=== PATIENT | male | born 1975 | race Caucasian/White ===

== ENCOUNTER 2016-08-14 13:55 | Emergency (ER) | payer MEDICAID ==
[~2016-08-14] VITALS: Ht 180.3 cm; Wt 81.6 kg
[~2016-08-14 13:55] MED LIST: ADDERAL20 MG ORAL; ADDERALL 20 MG20 MG ORAL; ADDERALL 30 MG30 MG ORAL; ADDERALL XR 2020 MG ORAL; KENALOG 0.1% CR15 GM APPLIC; KENALOG 0.1% CR15 GM TOPIC; PEPCID20 MG PO; VYVANSE30 MG PO; VYVANSE70 MG ORAL; VYVANSE70 MG PO
[2016-08-14 14:09] VITALS: BP 128/88
[2016-08-14] MEDS ORDERED: ADDERALL XR 2525 MG ORAL (14:18)
[2016-08-14 14:20] VITALS: BP 128/88
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
== END 2016-08-14 14:20 | disposition home or self-care (01) ==
LOC: EMR 14:16
DX: Z76.0 Encounter for issue of repeat prescription (principal); F90.9 Attention-deficit hyperactivity disorder, unspecified type; K21.9 Gastro-esophageal reflux disease without esophagitis; Z88.6 Allergy status to analgesic agent
CPT/HCPCS: 99283

== ENCOUNTER 2016-08-14 16:06 | Emergency (ER) | payer MEDICAID ==
[~2016-08-14] VITALS: Ht 185.4 cm; Wt 83.9 kg
[~2016-08-14 16:06] MED LIST changes: +ADDERALL XR 2525 MG ORAL
[2016-08-14 16:30] VITALS: BP 129/91
[2016-08-14 16:48] LABS: APPEARANCE,URINE CLEAR; KETONES,URINE NEGATIVE (NEGATIVE); LEUKOCYTE ESTERASE ,URINE NEGATIVE (NEGATIVE); NITRITE,URINE NEGATIVE (NEGATIVE); PH,URINE 6 (4.5-8.0); PROTEIN,URINE NEGATIVE (NEGATIVE); UROBILINOGEN,URINE NORMAL MG/DL (0.0-1.0)
[2016-08-14 17:02] LABS: MEAN CORPUSCULAR HEMOGLOBIN 29.8 PG (27.0-31.0); MEAN CORPUSCULAR HGB CONC 33.2 G/DL (32.0-36.0); MEAN CORPUSCULAR VOLUME 90 FL (80-99); MEAN PLATELET VOLUME 12.2 FL (6.5-10.1); PLATELET COUNT 38 K/UL (150-450); RED BLOOD COUNT 4.26 M/UL (4.70-6.10); RED CELL DISTRIBUTION WIDTH 13.6 % (11.6-14.8); WHITE BLOOD COUNT 5.8 K/UL (4.8-10.8)
[2016-08-14 17:06] LABS: ALANINE AMINOTRANSFERASE 43 U/L (3-41); ALBUMIN/GLOBULIN RATIO 1.8 (1.0-2.7); ALCOHOL < 10 mg/dL; ANION GAP 22 (5-15); ASPARTATE AMINO TRANSFERASE 54 U/L (5-40); CALCIUM 9.2 mg/dL (8.6-10.2); CARBON DIOXIDE 20 mEQ/L (20-30); CHLORIDE 96 mEQ/L (98-107); CREATININE 1.2 mg/dL (0.7-1.2); GLOMERULAR FILTRATION RATE > 60 mL/min (>60); HEMOLYSIS 6; POTASSIUM 4.3 mEQ/L (3.4-4.9); SODIUM 138 mEQ/L (135-145)
--- NOTE | 2016-08-14 17:08 | Emergency Room Report ---
History of Present Illness General Chief Complaint: Seizure Source: Patient Present Illness HPI Patient presents by EMS. He presents for a first-time seizure. Apparently, this patient had been walking for several hours today to different pharmacies to fill a prescription of Adderall. He states that he walked to 7 different pharmacies. He states that he may have been dehydrated. Regardless, he was outside of the pharmacy and was witnessed to have a tonic clonic seizure that lasted about 30 seconds. This was witnessed by bystanders. The patient states he has never had a seizure previously. He states that other than feeling dehydrated he has felt well today. He denies fever or chills. He denies nausea or vomiting. Denies chest pain or shortness of breath. He states that he does have ADHD and uses Adderall. Apparently there is no trauma. The patient wasn't feeling right and laid down and then had a seizure. Patient feels back to baseline now. The patient has no complaints. Allergies: Coded Allergies: CODEINE (Verified Allergy, Unknown, 11/08/12) Patient History Past Medical History: see triage record, GERD, psych hx - ADHD Social History: Denies: alcohol use, drug use, smoking Reviewed Nursing Documentation: PMH: Agreed, PSxH: Agreed Nursing Documentation-PMH Hx Cardiac Problems: No - ECZEMA Hx Hypertension: No Hx Pacemaker: No Hx Asthma: Yes - CHILDHOOD Hx COPD: No Hx Diabetes: No Hx Cancer: No Hx Dialysis: No Hx Neurological Problems: Yes - adhd Hx Cerebrovascular Accident: No Hx Seizures: No Review of Systems All Other Systems: negative except mentioned in HPI Physical Exam Vital Signs Date Time Temp Pulse Resp B/P Pulse Ox O2 Delivery O2 Flow Rate FiO2 08/14/16 16:02 98.2 119 18 145/87 98 Room Air Sp02 EP Interpretation: reviewed, normal General Appearance: no apparent distress, alert, GCS 15, non-toxic Head: normocephalic, atraumatic Eyes: bilateral eye PERRL, bilateral eye normal inspection ENT: hearing grossly normal, normal pharynx, no angioedema, normal voice Neck: full range of motion, supple/symm/no masses Respiratory: chest non-tender, lungs clear, normal breath sounds, speaking full sentences Cardiovascular #1: regular rate, rhythm, no edema Gastrointestinal: normal bowel sounds, non tender, soft, non-distended, no guarding, no rebound Rectal: deferred Musculoskeletal: back normal, gait/station normal, normal range of motion, non- tender Neurologic: alert, oriented x3, responsive, motor strength/tone normal, sensory intact, speech normal Psychiatric: judgement/insight normal, memory normal, mood/affect normal, no suicidal/homicidal ideation Skin: normal color, no rash, warm/dry, well hydrated Medical Decision Making Diagnostic Impression: Primary Impression: Epileptic seizure, generalized ER Course I suspect the seizures that the patient is presenting with is non-emergent in etiology. The patient is not immunocompromised with no history of known structural brain disease. The patient does not have persistent altered mental status, fever or new focal neurologic deficit. Laboratory workup was noncontributory. I doubt meningitis so a lumbar puncture was not performed. CT scan of the brain was negative. Patient was found to have positive benzodiazepines in his urine drug screen. Patient's pupils were large. I suspect the patient is doing substances such as street drugs to include benzodiazepines. Regardless, the patient is well appearing overall and had no further seizures. The patient was counseled that, though unlikely, the possibility of an emergent cause of seizure may still be present and that the patient should return immediately if symptoms persist or worsen. I believe the patient is stable for discharge to followup with the primary care provider for further workup. Labs Test 08/14/16 16:30 08/14/16 16:35 Urine Color Pale yellow Urine Appearance Clear Urine pH 6 (4.5-8.0) Urine Specific Buras 1.015 (1.005-1.035) Urine Protein Negative (NEGATIVE) Urine Glucose (UA) Negative (NEGATIVE) Urine Ketones Negative (NEGATIVE) Urine Occult Blood Negative (NEGATIVE) Urine Nitrite Negative (NEGATIVE) Urine Bilirubin Negative (NEGATIVE) Urine Urobilinogen Normal MG/DL (0.0-1.0) Urine Leukocyte Esterase Negative (NEGATIVE) Urine Opiates Screen Negative (NEGATIVE) Urine Barbiturates Screen Negative (NEGATIVE) Phencyclidine (PCP) Screen Negative (NEGATIVE) Urine Amphetamines Screen Positive (NEGATIVE) Urine Benzodiazepines Screen Positive (NEGATIVE) Urine Cocaine Screen Negative (NEGATIVE) Urine Marijuana (THC) Screen Negative (NEGATIVE) White Blood Count 5.8 K/UL (4.8-10.8) Red Blood Count 4.26 M/UL (4.70-6.10) Hemoglobin 12.7 G/DL (14.2-18.0) Hematocrit 38.3 % (42.0-52.0) Mean Corpuscular Volume 90 FL (80-99) Mean Corpuscular Hemoglobin 29.8 PG (27.0-31.0) Mean Corpuscular Hemoglobin Concent 33.2 G/DL (32.0-36.0) Red Cell Distribution Width 13.6 % (11.6-14.8) Platelet Count 38 K/UL (150-450) Mean Platelet Volume 12.2 FL (6.5-10.1) Neutrophils (%) (Auto) % (45.0-75.0) Lymphocytes (%) (Auto) % (20.0-45.0) Monocytes (%) (Auto) % (1.0-10.0) Eosinophils (%) (Auto) % (0.0-3.0) Basophils (%) (Auto) % (0.0-2.0) Sodium Level 138 mEQ/L (135-145) Potassium Level 4.3 mEQ/L (3.4-4.9) Chloride Level 96 mEQ/L (98-107) Carbon Dioxide Level 20 mEQ/L (20-30) Anion Gap 22 (5-15) Blood Urea Nitrogen 20 mg/dL (7-23) Creatinine 1.2 mg/dL (0.7-1.2) Estimat Glomerular Filtration Rate > 60 mL/min (>60) Glucose Level 137 mg/dL (74-106) Calcium Level 9.2 mg/dL (8.6-10.2) Total Bilirubin 0.2 mg/dL (0.0-1.2) Aspartate Amino Transf (AST/SGOT) 54 U/L (5-40) Alanine Aminotransferase (ALT/SGPT) 43 U/L (3-41) Alkaline Phosphatase 80 U/L (40-129) Total Protein 7.0 g/dL (6.6-8.7) Albumin 4.5 g/dL (3.5-5.2) Globulin 2.5 g/dL Albumin/Globulin Ratio 1.8 (1.0-2.7) Serum Alcohol < 10 mg/dL EKG Diagnostic Results Rate: tachycardiac Rhythm: other ST Segments: no acute changes Other Impression S.tachycardia Rhythm Strip Diag. Results EP Interpretation: yes Rate: 100's Rhythm: no PVC's, no ectopy Other Impression S.tachycardia CT/MRI/US Diagnostic Results CT/MRI/US Diagnostic Results : Imaging Test Ordered: CT head Impression No acute findings. See official report. Last Vital Signs Date Time Temp Pulse Resp B/P Pulse Ox O2 Delivery O2 Flow Rate FiO2 08/14/16 16:15 119 18 Room Air 08/14/16 16:02 98.2 145/87 98 Status: improved Disposition: HOME, SELF-CARE Condition: Improved Referrals: [facility],REFERRING (PCP) Patient Instructions: Seizure, Adult ANNELISE DICKEY D.O. Aug 14, 2016 17:08
[2016-08-14 17:30] VITALS: BP 117/67
[2016-08-14 18:12] LABS: BASOPHILS % (MANUAL) 1 % (0-2); EOSINOPHILS % (MANUAL) 9 % (0-3); LYMPHOCYTES % (MANUAL) 38 % (20-45); NEUTROPHILS % (MANUAL) 47 % (45-75); TOTAL CELLS COUNTED 100
[2016-08-14 18:13] LABS: BAND NEUTROPHILS % (MANUAL) 0 % (0-8); PLATELET CLUMPS 1+; PLATELET ESTIMATE DECREASED
[2016-08-14 18:50] VITALS: BP 120/81
[2016-08-14 18:52] VITALS: BP 117/67
--- NOTE | 2016-08-15 12:20 | Diagnostic Imaging Report ---
Indications: Seizure Technique: Continuous helical CT imaging of the brain was performed with automatic exposure control on a Siemens sensation [address] scanner. Axial and coronal images were reconstructed at 5 mm slice thickness and interval. CTDI volume(s): 70 mGy Total DLP: 1552 mGy-cm Findings: Comparison: None. Intracranial anatomy is unremarkable. No evidence of mass or hemorrhage, other attenuation abnormality, mass effect, midline shift, hydrocephalus or increased intracranial pressure. Bone window images are unremarkable. Visualized paranasal sinuses and mastoid air cells are clear. IMPRESSION: Negative noncontrast CT scan of the brain . Examination suboptimal for evaluation of first-time seizure. MRI of the brain without and with gadolinium, seizure protocol, recommended for more complete evaluation, as clinically indicated.. This correlates with [facility] preliminary report. The CT scanner at [facility] is accredited by the [employer] and the scans are performed using protocols designed to limit radiation exposure to as low as reasonably achievable to attain images of sufficient resolution adequate for diagnostic evaluation.
--- NOTE | 2016-08-16 09:33 | Cardiology Report ---
APPROVED REPORT EKG Measurement Heart [id number] Sinus tachycardia Possible Left atrial enlargement Borderline ECG
== END 2016-08-14 18:52 | disposition home or self-care (01) ==
LOC: EDBD 16:06 → EMR 16:22
DX: G40.409 Other generalized epilepsy and epileptic syndromes, not intractable, without status epilepticus (principal); F90.9 Attention-deficit hyperactivity disorder, unspecified type; Z88.6 Allergy status to analgesic agent
CPT/HCPCS: 36415; 70450; 80053; 80299; 80300; 80329; 81003; 82962; 85007; 85025; 93005; 96360; 96374

== ENCOUNTER 2017-03-12 14:07 | Emergency (ER) | payer MEDICAID ==
[~2017-03-12] VITALS: Ht 180.3 cm; Wt 84.8 kg
--- NOTE | 2017-03-12 14:29 | Emergency Room Report ---
History of Present Illness General Chief Complaint: Medication Refill Source: Patient Present Illness HPI 41-year-old male presents to the emergency department complaining of need for medication refill. 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 He then states he is diagnosed with ADHD. Patient states that he is unable to see a psychiatrist for another 7-10 days and requires temporary refill in the meantime. Denies SI/HI, delusions, hallucinations or manic symptoms. Denies CP, Palpitations, LOC, AMS, dizziness, Changes in Vision , Sensation, paresthesias, or a sudden severe headache. Allergies: Coded Allergies: CODEINE (Verified Allergy, Unknown, 11/08/12) Patient History Past Medical History: see triage record Past Surgical History: none Pertinent Family History: none Reviewed Nursing Documentation: PMH: Agreed, PSxH: Agreed Nursing Documentation-PMH Hx Cardiac Problems: No - ECZEMA Hx Hypertension: No Hx Pacemaker: No Hx Asthma: Yes - CHILDHOOD Hx COPD: No Hx Diabetes: No Hx Cancer: No Hx Gastrointestinal Problems: Yes - GERD Hx Dialysis: No History Of Psychiatric Problem: Yes - ADHD Hx Neurological Problems: Yes - adhd Hx Cerebrovascular Accident: No Hx Seizures: No Review of Systems All Other Systems: negative except mentioned in HPI Physical Exam Vital Signs Date Time Temp Pulse Resp B/P (MAP) Pulse Ox O2 Delivery O2 Flow Rate FiO2 03/12/17 14:17 97.9 101 16 148/104 99 Room Air Sp02 EP Interpretation: reviewed, normal General Appearance: no apparent distress, alert, GCS 15, non-toxic Head: normocephalic, atraumatic Eyes: bilateral eye normal inspection, bilateral eye PERRL ENT: hearing grossly normal, normal voice Neck: full range of motion Respiratory: lungs clear, normal breath sounds, speaking full sentences Cardiovascular #1: regular rate, rhythm Musculoskeletal: back normal, gait/station normal, normal range of motion Neurologic: alert, oriented x3, responsive, motor strength/tone normal, sensory intact, normal gait, speech normal Psychiatric: memory normal, no suicidal/homicidal ideation, anxious - pt. has rapid speech, and fidgets in chair durring exam. Skin: normal color, no rash, warm/dry, well hydrated Medical Decision Making PA Attestation Dr. Johnson is my supervising Physician whom patient management has been discussed with. Diagnostic Impression: Primary Impression: Encounter for medication refill Additional Impression: Adult ADHD ER Course 41-year-old male presents to the emergency department complaining of need for medication refill. 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 He then states he is diagnosed with ADHD. Patient states that he is unable to see a psychiatrist for another 7-10 days and requires temporary refill in the meantime. Denies SI/HI, delusions, hallucinations or manic symptoms. Denies CP, Palpitations, LOC, AMS, dizziness, Changes in Vision , Sensation, paresthesias, or a sudden severe headache. Ddx considered but are not limited to: drug seeking, OD, ADHD. Vital signs: are WNL, pt. is afebrile H&PE are most consistent with no necessary need for emergent medication refill. ORDERS: none required at this time, the diagnosis is clinical ED INTERVENTIONS: None required at this time. Discussed with patient that the emergency department is not the appropriate setting to be refilling that type of medication and to be given resource information for her mental health urgent care where he can be evaluated there for a non-emergent medication refill. DISCHARGE: At this time pt. is stable for d/c to home. Will provide printed patient care instructions, and any necessary prescriptions. Care plan and follow up instructions have been discussed with the patient prior to discharge. Last Vital Signs Date Time Temp Pulse Resp B/P (MAP) Pulse Ox O2 Delivery O2 Flow Rate FiO2 03/12/17 14:17 97.9 101 16 148/104 99 Room Air Disposition: HOME, SELF-CARE Condition: Stable Patient Instructions: Medicine Refill at the Emergency Department Additional Instructions: Take medications as directed. Follow up with a Primary Care Provider in 3-5 days, even if your symptoms have resolved. --Please review [facility] MENTAL HEALTH URGENT CARE INFORMATION. Return sooner to ED if new symptoms occur, or current symptoms become worse. - Please note that this Emergency Department Report was dictated using [employer] technology software, occasionally this can lead to erroneous entry secondary to interpretation by the dictation equipment. Elaine Haque Mar 12, 2017 14:29
[2017-03-12 14:58] VITALS: BP 145/86
== END 2017-03-12 15:00 | disposition home or self-care (01) ==
LOC: EMR 14:38
DX: Z76.0 Encounter for issue of repeat prescription (principal); F90.9 Attention-deficit hyperactivity disorder, unspecified type; K21.9 Gastro-esophageal reflux disease without esophagitis; Z88.6 Allergy status to analgesic agent
CPT/HCPCS: 99282

== ENCOUNTER 2017-06-15 10:49 | Emergency (ER) | payer MEDICAID ==
[~2017-06-15] VITALS: Ht 180.3 cm; Wt 83.9 kg
[2017-06-15 11:20] VITALS: BP 129/79
[2017-06-15 11:26] VITALS: BP 129/79
--- NOTE | 2017-06-15 11:33 | Emergency Room Report ---
History of Present Illness General Chief Complaint: Medication Refill Source: Patient Present Illness HPI Patient presents for refill of medication for his ADHD Patient reports that he has been having difficulty seeing his primary physician Patient has been on the medicine for long-standing period of time Denies any chest pain or shortness of breath denies any back or flank pain Denies any fevers or chills Allergies: Coded Allergies: CODEINE (Verified Allergy, Unknown, 11/08/12) Patient History Past Medical History: see triage record Pertinent Family History: none Reviewed Nursing Documentation: PMH: Agreed; PSxH: Agreed Nursing Documentation-PMH Hx Cardiac Problems: No - ECZEMA Hx Hypertension: No Hx Pacemaker: No Hx Asthma: Yes - CHILDHOOD Hx COPD: No Hx Diabetes: No Hx Cancer: No Hx Gastrointestinal Problems: Yes - GERD Hx Dialysis: No Hx Neurological Problems: Yes - adhd Hx Cerebrovascular Accident: No Hx Seizures: No Review of Systems All Other Systems: negative except mentioned in HPI Physical Exam Vital Signs Date Time Temp Pulse Resp B/P (MAP) Pulse Ox O2 Delivery O2 Flow Rate FiO2 06/15/17 10:54 98.1 103 17 129/79 95 Room Air 98.1 Sp02 EP Interpretation: reviewed, normal General Appearance: well appearing, no apparent distress Head: normocephalic, atraumatic Eyes: bilateral eye PERRL, bilateral eye EOMI ENT: normal pharynx, no angioedema Neck: supple Musculoskeletal: normal inspection Neurologic: alert, oriented x3, responsive Skin: normal color, warm/dry Lymphatic: no adenopathy Medical Decision Making Diagnostic Impression: Primary Impression: Adult ADHD ER Course Patient was present at the emergency room in March with similar request At that time he was notified that emergency room is not appropriate for this medication refill That is appropriate policy and patient was again discussed regarding that consideration Patient is very understanding and reports that he will attempt touching base with his primary physician Last Vital Signs Date Time Temp Pulse Resp B/P (MAP) Pulse Ox O2 Delivery O2 Flow Rate FiO2 06/15/17 11:26 98.1 100 17 129/79 95 Room Air 98.1 Status: unchanged Disposition: HOME, SELF-CARE Condition: Stable Referrals: NON PHYSICIAN (PCP) Patient Instructions: Attention Deficit Hyperactivity Disorder Additional Instructions: Patient is provided with the discharge instructions notified to follow up with primary doctor in the next 2-3 days otherwise return to the er with any worsening symptoms. Please note that this report is being documented using DRAGON technology. This can lead to erroneous entry secondary to incorrect interpretation by the dictating instrument. Kirill Herr DO Jun 15, 2017 11:33
== END 2017-06-15 11:27 | disposition home or self-care (01) ==
LOC: EMR 11:25
DX: Z76.0 Encounter for issue of repeat prescription (principal); F90.9 Attention-deficit hyperactivity disorder, unspecified type
CPT/HCPCS: 99282

== ENCOUNTER 2017-08-09 23:54 | Emergency (ER) | payer MEDICAID ==
[~2017-08-09] VITALS: Ht 180.3 cm; Wt 85.7 kg
[2017-08-10] MEDS ORDERED: BUSPAR10 MG ORAL (00:12)
[2017-08-10 00:29] VITALS: BP 151/99
--- NOTE | 2017-08-10 05:24 | Emergency Room Report ---
History of Present Illness General Chief Complaint: General Complaint Source: Patient, Medical Record Present Illness HPI Patient is a 42-year-old male who presented for medication refill. Patient states that he had previously been prescribed Xanax and wanted a refill of medications due to increased anxiety. The patient states that he did not take medications regularly. He reports having increased stress at home related to the mothers medical condition. Allergies: Coded Allergies: CODEINE (Verified Allergy, Unknown, 11/08/12) Patient History Past Medical History: see triage record Reviewed Nursing Documentation: PMH: Agreed; PSxH: Agreed Nursing Documentation-PMH Hx Cardiac Problems: No - ECZEMA Hx Hypertension: No Hx Pacemaker: No Hx Asthma: Yes - CHILDHOOD Hx COPD: No Hx Diabetes: No Hx Cancer: No Hx Dialysis: No Hx Neurological Problems: Yes - adhd Hx Cerebrovascular Accident: No Hx Seizures: No Physical Exam Vital Signs Date Time Temp Pulse Resp B/P (MAP) Pulse Ox O2 Delivery O2 Flow Rate FiO2 08/10/17 00:11 98.0 116 20 151/99 98 98.1 General Appearance: well appearing, no apparent distress, alert, GCS 15 Head: normocephalic, atraumatic ENT: hearing grossly normal, normal voice Neck: full range of motion, supple Respiratory: no respiratory distress, speaking full sentences Musculoskeletal: no calf tenderness Neurologic: normal gait Psychiatric: normal inspection, judgement/insight normal, mood/affect normal Skin: no rash Medical Decision Making Diagnostic Impression: Primary Impression: Anxiety ER Course Patient presented for anxiety. Differential diagnosis included was not limited to alcohol withdrawal, anxiety, stimulant abuse among others. Patient has a benign exam and does not appear to require any further imaging or laboratory testing at this time. The patient appears to have anxiety related to current situation. The patient was advised that we would need to see his primary care physician for benzodiazepines. He was given prescription for BuSpar. The patient is advised to follow up with primary care doctor in 1-2 days. Patient is advised to return if any worsening condition or if any changes in status that are concerning. This report is dictated with [employer] glue spreader software which may occasionally lead to discrepancies related to use of this software. Last Vital Signs Date Time Temp Pulse Resp B/P (MAP) Pulse Ox O2 Delivery O2 Flow Rate FiO2 08/10/17 00:29 98.0 20 151/99 98 98.1 08/10/17 00:11 116 Status: improved Disposition: HOME, SELF-CARE Condition: Stable Scripts Buspirone Hcl* (BUSPAR*) 10 Mg Tablet 10 MG ORAL THREE TIMES A DAY, #10 TAB 0 Refills Prov: Jose R Foster MD 08/10/17 [facility]ERR[facility] (PCP) Patient Instructions: Panic Attacks Jose R Foster MD Aug 10, 2017 05:24
== END 2017-08-10 00:30 | disposition home or self-care (01) ==
LOC: EMR 08-10 00:15
DX: F41.9 Anxiety disorder, unspecified (principal); Z76.0 Encounter for issue of repeat prescription; F90.9 Attention-deficit hyperactivity disorder, unspecified type; Z88.6 Allergy status to analgesic agent
CPT/HCPCS: 99283

== ENCOUNTER 2017-12-31 17:14 | Emergency (ER) | payer MEDICAID ==
[~2017-12-31] VITALS: Ht 180.3 cm; Wt 86.2 kg
[~2017-12-31 17:14] MED LIST changes: +BUSPAR10 MG ORAL
[2017-12-31 17:25] VITALS: BP 134/97
--- NOTE | 2017-12-31 17:40 | Emergency Room Report ---
History of Present Illness General Chief Complaint: Medication Refill Source: Patient Present Illness HPI 42-year-old male patient presents ER requesting refill of medication. Patient states that he is taking Vyvanse 60 mg once a day. States he's been on the medication since 2009. Reports history of ADHD. Denies any side effects of taking medication currently. Denies fever, chest pain, shortness of breath, abdominal pain, weight loss, vomiting. Reports that he needs a refill of his medication, requesting at least 3 days medication. States that he had a prescription and filled it however it was placed on the top of his car and flew off while he was driving. States that he tried to see his therapist but his therapist was "on sabbatical" and "sick" patient states he needs refill medication. denies thoughts of hurting himself or others. Allergies: Coded Allergies: CODEINE (Verified Allergy, Unknown, 11/08/12) Patient History Past Medical History: see triage record Reviewed Nursing Documentation: PMH: Agreed; PSxH: Agreed Nursing Documentation-PMH Past Medical History: No History, Except For Hx Cardiac Problems: No - ECZEMA Hx Hypertension: No Hx Pacemaker: No Hx Asthma: Yes - CHILDHOOD Hx COPD: No Hx Diabetes: No Hx Cancer: No Hx Dialysis: No Hx Neurological Problems: Yes - adhd Hx Cerebrovascular Accident: No Hx Seizures: No Review of Systems All Other Systems: negative except mentioned in HPI Physical Exam Vital Signs Date Time Temp Pulse Resp B/P (MAP) Pulse Ox O2 Delivery O2 Flow Rate FiO2 12/31/17 17:20 98.2 91 20 134/97 95 Room Air Sp02 EP Interpretation: reviewed, normal General Appearance: well appearing, no apparent distress, alert, GCS 15, non- toxic Head: normocephalic, atraumatic Eyes: bilateral eye normal inspection, bilateral eye PERRL ENT: hearing grossly normal, normal pharynx, no angioedema, normal voice, uvula midline, moist mucus membranes Neck: full range of motion Respiratory: lungs clear, normal breath sounds, no rhonchi, no respiratory distress, no accessory muscle use, no wheezing, speaking full sentences Cardiovascular #1: regular rate, rhythm, no edema Musculoskeletal: back normal, digits/nails normal, gait/station normal, normal range of motion, non-tender Neurologic: alert, oriented x3, responsive, motor strength/tone normal, sensory intact Psychiatric: mood/affect normal, no suicidal/homicidal ideation Medical Decision Making PA Attestation Dr. Herr is my supervising Physician whom patient management has been discussed with. Diagnostic Impression: Primary Impression: Encounter for medication refill ER Course Pt. presents to the ED requesting prescription refill. Multiple differentials were considered. Vital signs: are WNL, pt. is afebrile ORDERS: PE benign Informed patient would not provide refill of medication. Informed patient policy of hospital to not provide refill of controlled substance medications. CURES reviewed, shows recent refill of medication on 12/11/17, 30 day supply given at that time. Showed patient CURES reports. informed patient follow up with mental health urgent care. Patient states he is aware of mental health urgent care and "the area scares" him. Will provide patient with contact information for alternative mental health facilities. Advised patient to followup with therapist at scheduled appointment. Followup with primary care provider for further treatment. Informed patient ER cannot provide refills in the future; followup, management and prescription of long-term medications must be performed by primary care provider. DISCHARGE: No Rx provided at this time. At this time pt is stable for d/c to home. Patient is resting comfortably, in no acute distress, nontoxic appearing, talking without difficulty. Patient to take medications as instructed Will provide with patient care instructions and any necessary prescriptions. Care plan and follow-up instructions provided. Patient instructed to follow-up with primary care provider in 3 - 5 days. Patient questions asked and answered. Patient reports understanding and agreement to treatment plan. ER precautions given. Patient instructed to return to ER immediately for any new or worsening of symptoms including but not limited to increasing SOB, persistent fever. - Please note that this Emergency Department Report was dictated using [employer] wheel loader technology software, occasionally this can lead to erroneous entry secondary to interpretation by the dictation equipment. Last Vital Signs Date Time Temp Pulse Resp B/P (MAP) Pulse Ox O2 Delivery O2 Flow Rate FiO2 12/31/17 17:25 98.2 20 134/97 95 Room Air 12/31/17 17:20 91 Disposition: HOME, SELF-CARE Condition: Stable Patient Instructions: Medicine Refill at the Emergency Department Additional Instructions: Followup with primary care provider in 3 -5 days. Follow-up with therapist at scheduled appointment. Follow-up with mental health urgent care. Take medications as directed. Patient questions asked and answered. ER precautions given, patient instructed to return to ER immediately for any new or worsening of symptoms. Julius Barrientos Dec 31, 2017 17:40
[2017-12-31 17:46] VITALS: BP 134/97
== END 2017-12-31 17:57 | disposition home or self-care (01) ==
LOC: EMR 17:40
DX: Z76.0 Encounter for issue of repeat prescription (principal); F90.9 Attention-deficit hyperactivity disorder, unspecified type; Z88.5 Allergy status to narcotic agent
CPT/HCPCS: 99282

== ENCOUNTER 2018-01-04 07:42 | Emergency (ER) | payer MEDICAID ==
[~2018-01-04] VITALS: Ht 180.3 cm; Wt 86.2 kg
[2018-01-04 07:45] VITALS: BP 128/93
--- NOTE | 2018-01-04 07:59 | Emergency Room Report ---
History of Present Illness General Chief Complaint: Medication Refill Source: Patient Present Illness HPI 42-year-old male with history of anxiety, just seen 3 days ago for similar complaint, has been to the ED multiple times for medication refill, reports his out of Klonopin and needs it because he is having anxiety. He says he gets panic attacks that last between 5 mins- 30 mins, and lately he's been unable to sleep. I suggested that he try nyquil or OTC sleep aids, since he's not tried anything to help him sleep. He denies chest pain, syncope, and other than insomnia, can't think of any triggers of his anxiety. Allergies: Coded Allergies: CODEINE (Verified Allergy, Unknown, 11/08/12) Patient History Past Medical History: see triage record Reviewed Nursing Documentation: PMH: Agreed; PSxH: Agreed Nursing Documentation-PMH Past Medical History: No History, Except For Hx Cardiac Problems: No - ECZEMA Hx Hypertension: No Hx Pacemaker: No Hx Asthma: Yes - CHILDHOOD Hx COPD: No Hx Diabetes: No Hx Cancer: No Hx Gastrointestinal Problems: Yes - GERD Hx Dialysis: No History Of Psychiatric Problem: No - anxiety Hx Neurological Problems: Yes - adhd Hx Cerebrovascular Accident: No Hx Seizures: No Review of Systems Constitutional: Denies: fever Eye: Denies: acuity changes Respiratory: Denies: cough, shortness of breath Cardiovascular: Denies: chest pain Gastrointestinal: Denies: nausea, vomiting Skin: Denies: rash Neurological: Denies: headache Physical Exam Vital Signs Date Time Temp Pulse Resp B/P (MAP) Pulse Ox O2 Delivery O2 Flow Rate FiO2 01/04/18 07:45 97.5 104 18 128/93 95 Room Air General Appearance: well appearing, no apparent distress Head: normocephalic, atraumatic ENT: hearing grossly normal, normal voice Neck: full range of motion, supple Respiratory: normal inspection, lungs clear, normal breath sounds, no rhonchi, no respiratory distress, no retraction, no accessory muscle use, speaking full sentences Cardiovascular #1: normal peripheral pulses, regular rate, rhythm, no edema, no gallop, no murmur, no rub Musculoskeletal: no calf tenderness Neurologic: alert, oriented x3, software test and validation engineer III-XII nml as tested, motor strength/tone normal, sensory intact, normal gait, other - no tremor or tremulousness Psychiatric: mood/affect normal, anxious Skin: no rash Medical Decision Making Diagnostic Impression: Primary Impression: medication refill ER Course Patient with slight initial tachycardia, but on heart auscultation not obviously tachycardic. Patient also not showing signs of benzodiazepine withdrawal. I explained to him ED policy of not prescribing benzodiazepines or medication refills for controlled substances. Patient explaining to the mental health urgent care, given information for [facility], discharged. Last Vital Signs Date Time Temp Pulse Resp B/P (MAP) Pulse Ox O2 Delivery O2 Flow Rate FiO2 01/04/18 07:45 97.5 104 18 128/93 95 Room Air Disposition: HOME, SELF-CARE Condition: Stable DENNIS WARNER M.D Jan 04, 2018 07:59
[2018-01-04 08:07] VITALS: BP 124/76
== END 2018-01-04 08:07 | disposition home or self-care (01) ==
LOC: EMR 07:56
DX: Z76.0 Encounter for issue of repeat prescription (principal); Z88.5 Allergy status to narcotic agent; K21.9 Gastro-esophageal reflux disease without esophagitis
CPT/HCPCS: 99282

== ENCOUNTER 2019-06-06 11:39 | Emergency (ER) | payer MEDICAID ==
[~2019-06-06] VITALS: Ht 180.3 cm; Wt 81.6 kg
[~2019-06-06 11:39] MED LIST changes: +ATIVAN0.5 MG ORAL; +STRATTERA10 MG PO
[2019-06-06 12:11] VITALS: BP 154/104
--- NOTE | 2019-06-06 12:11 | NUR ---
Louis garza in EDM - 06/06/19 at 1244 by NEEMA ED Nurse Note: Pt walked in to ED c/o anxiety attack to
--- NOTE | 2019-06-06 12:11 | NUR ---
ED Nurse Note: Pt walked in to ED c/o anxiety attack started this morning. Per pt he is worrying too much about himself and his family. Pt is requesting for ativan. Not in any distress. Afebrile.
--- NOTE | 2019-06-06 12:11 | NUR ---
ED Nurse Note: Pt walked in to ED c/o anxiety attack to
--- NOTE | 2019-06-06 12:27 | Emergency Room Report ---
History of Present Illness General Chief Complaint: General Complaint Source: Patient Present Illness HPI 44-year-old male with history of ADHD and anxiety here requesting medication refill for Ativan. Patient is currently taking Vyvanse and up-to-date. Patient does not take Ativan all time only as needed. Reports that he usually tries to run on the treadmill and goes to the gym to get over his anxiety. Call his psychiatrist and was unable to arrange an appointment. Patient appears to be anxious however denies any suicidal homicidal ideations. Cures was done on patient and patient has not used any Ativan for the past several months. Denies any shortness of breath, chest pain, fever and chills at this time. Agrees to the dose here as well as only 2-day supply. Allergies: Coded Allergies: CODEINE (Verified Allergy, Unknown, 11/08/12) COVID-19 Screening Contact w/high risk pt: No Recent Travel to affected area: No Experienced COVID-19 symptoms?: No Patient History Past Medical History: see triage record Past Surgical History: none Pertinent Family History: none Immunizations: UTD Reviewed Nursing Documentation: PMH: Agreed; PSxH: Agreed Nursing Documentation-PMH Hx Cardiac Problems: No - ECZEMA Hx Hypertension: No Hx Pacemaker: No Hx Asthma: Yes - CHILDHOOD Hx COPD: No Hx Diabetes: No Hx Cancer: No Hx Gastrointestinal Problems: Yes - GERD Hx Dialysis: No Hx Neurological Problems: Yes - adhd Hx Cerebrovascular Accident: No Hx Seizures: No Review of Systems All Other Systems: negative except mentioned in HPI Physical Exam Vital Signs Date Time Temp Pulse Resp B/P (MAP) Pulse Ox O2 Delivery O2 Flow Rate FiO2 06/06/19 12:05 98.4 104 24 154/104 (121) 99 Room Air Sp02 EP Interpretation: reviewed, normal General Appearance: normal inspection, well appearing, no apparent distress, alert Head: normocephalic, atraumatic ENT: hearing grossly normal, normal voice Neck: supple Respiratory: no rhonchi, no respiratory distress, speaking full sentences Cardiovascular #1: no edema, no murmur Gastrointestinal: soft Genitourinary: no CVA tenderness Musculoskeletal: gait/station normal Neurologic: alert, oriented Psychiatric: no suicidal/homicidal ideation, anxious Skin: no rash Lymphatic: no adenopathy Medical Decision Making PA Attestation All diagnoses and treatment plans were reviewed and discussed with my supervising physician Dr. Pandey Diagnostic Impression: Primary Impression: medication refill ER Course 44-year-old male with history of ADHD and anxiety here requesting medication refill for Ativan. Patient is currently taking Vyvanse and up-to-date. Patient does not take Ativan all time only as needed. Reports that he usually tries to run on the treadmill and goes to the gym to get over his anxiety. Call his psychiatrist and was unable to arrange an appointment. Patient appears to be anxious however denies any suicidal homicidal ideations. Cures was done on patient and patient has not used any Ativan for the past several months. Denies any shortness of breath, chest pain, fever and chills at this time. Agrees to the dose here as well as only 2-day supply. Ddx considered but are not limited to: generalized anxiety disorder, panic attack, depression with psycotic featurs, bipolar disorder, drug overdose Vital signs: are WNL, pt. is afebrile H&PE are most consistent with: Medication refill for anxiety ORDERS: Ativan 0.5 mg quantity #6 only for 2 days ED INTERVENTIONS: Ativan 0.5 mg p.o. given here DISCHARGE: At this time pt. is stable for d/c to home. Will provide printed patient care instructions, and any necessary prescriptions. Care plan and follow up instructions have been discussed with the patient prior to discharge. Given list of mental health facilities for patient to contact, also follow-up with psychiatrist for further evaluation and medication refill Last Vital Signs Date Time Temp Pulse Resp B/P (MAP) Pulse Ox O2 Delivery O2 Flow Rate FiO2 06/06/19 12:05 98.4 104 24 154/104 (121) 99 Room Air Disposition: HOME, SELF-CARE Condition: Stable Scripts Lorazepam* (ATIVAN*) 0.5 Mg Tablet 0.5 MG ORAL THREE TIMES A DAY, #6 TAB Prov: Ashley Gee 06/06/19 Patient Instructions: Generalized Anxiety Disorder Additional Instructions: Take medication as directed, follow-up with your primary care doctor, if worsening symptoms return to the emergency room Ashley Gee Jun 06, 2019 12:27
[2019-06-06] MEDS ORDERED: ATIVAN0.5 MG ORAL (12:28)
[2019-06-06] MEDS ORDERED: LORazepam 0.5mg tab ORAL ONE (12:30)
[2019-06-06 12:36] VITALS: BP 144/89
--- NOTE | 2019-06-06 12:36 | NUR ---
ED Nurse Note: Pt cleared by ERMD for discharge. DC instructions/prescription was given and explained to pt and verbalized understanding of teachings. All medical deviecs such as ID band removed. Pt is AAO x4, ambulatory and left with all personal belongings.
== END 2019-06-06 12:36 | disposition home or self-care (01) ==
LOC: EMR 12:25
DX: F41.9 Anxiety disorder, unspecified (principal); Z76.0 Encounter for issue of repeat prescription; Z88.6 Allergy status to analgesic agent
CPT/HCPCS: 99282

== ENCOUNTER 2019-06-09 14:10 | Emergency (ER) | payer MEDICAID ==
[~2019-06-09] VITALS: Ht 180.3 cm; Wt 81.6 kg
--- NOTE | 2019-06-09 14:21 | Emergency Room Report ---
History of Present Illness General Chief Complaint: To Be Triaged Present Illness HPI 44-year-old male with history of ADHD and anxiety who was here at [facility] 2 days ago requesting another refill for Ativan. Patient was given 2-day supply 2 days ago however did not make any appointments with mental health facilities that was given a list for. Denies any suicidal homicidal ideations. Is advised to follow-up with psychiatrist for more refills. He understands that we cannot write him any more refills as he was just here 2 days ago and needs a follow-up with primary doctor. Denies all other symptoms. Allergies: Coded Allergies: CODEINE (Verified Allergy, Unknown, 11/08/12) Patient History Past Medical History: see triage record Past Surgical History: none Family History: none Immunizations: UTD Reviewed Nursing Documentation: PMH: Agreed; PSxH: Agreed Nursing Documentation-PMH Hx Cardiac Problems: No - ECZEMA Hx Hypertension: No Hx Pacemaker: No Hx Asthma: Yes - CHILDHOOD Hx COPD: No Hx Diabetes: No Hx Cancer: No Hx Gastrointestinal Problems: Yes - GERD Hx Dialysis: No Hx Neurological Problems: Yes - adhd Hx Cerebrovascular Accident: No Hx Seizures: No Review of Systems All Other Systems: negative except mentioned in HPI Physical Exam Sp02 EP Interpretation: reviewed, normal General Appearance: alert/responsive, no apparent distress, GCS 15, non-toxic Head: atraumatic Eyes: PERRL, lids + conjunctiva normal ENT: hearing intact, no angioedema Neck: supple/symm/no masses, no meningismus Respiratory: effort normal, no wheezing, chest symmetrical Cardiovascular: regular rate, rhythm, no edema Gastrointestinal: non-tender, no mass, non-distended, no rebound/guarding, normal bowel sounds Musculoskeletal: normal inspection Neurologic: normal inspection, oriented x3 Psychiatric: anxious Skin: normal inspection Lymphatic: normal inspection Medical Decision Making PA Attestation All diagnoses and treatment plans were reviewed and discussed with my supervising physician Dr. Pandey Diagnostic Impression: Primary Impression: medication refill Additional Impression: Anxiety ER Course 44-year-old male with history of ADHD and anxiety who was here at [facility] 2 days ago requesting another refill for Ativan. Patient was given 2-day supply 2 days ago however did not make any appointments with mental health facilities that was given a list for. Denies any suicidal homicidal ideations. Is advised to follow-up with psychiatrist for more refills. He understands that we cannot write him any more refills as he was just here 2 days ago and needs a follow-up with primary doctor. Denies all other symptoms. Ddx considered but are not limited to: generalized anxiety disorder, panic attack, depression with psychotic feature, bipolar disorder, drug overdose Vital signs: are WNL, pt. is afebrile H&PE are most consistent with: Medication refill anxiety ORDERS: none required at this time, the diagnosis is clinical ED INTERVENTIONS: None required at this time. DISCHARGE: At this time pt. is stable for d/c to home. Will provide printed patient care instructions, and any necessary prescriptions. Care plan and follow up instructions have been discussed with the patient prior to discharge. Disposition: HOME, SELF-CARE Condition: Stable Patient Instructions: Generalized Anxiety Disorder Additional Instructions: At this time we are unable to refill your anxiety medication and you are just here 2 days ago for the same thing and only 1 time 2-day supply was given to you need to follow-up with your psychiatrist. Ashley Gee Jun 09, 2019 14:21
[2019-06-09 14:28] VITALS: BP 156/99
--- NOTE | 2019-06-09 14:28 | NUR ---
ED Nurse Note: Patient is being discharged from medical care. Awake, alert and oriented x4. After care instructions were given. Patient verbalized understanding of After care instructions. ID band were removed. Patient ambulated out with all personal belongings with steady gait.
--- NOTE | 2019-06-09 14:28 | NUR ---
ER DISCHARGE NOTE: Patient is cleared to be discharged per ERMD, pt is aox4, on room air, with stable vital signs. pt was given dc and prescription instructions, pt was able to verbalize understanding, pt id band removed. pt is able to ambulate with steady gait. pt took all belongings.
== END 2019-06-09 14:40 | disposition home or self-care (01) ==
LOC: EMR 14:34
DX: F41.9 Anxiety disorder, unspecified (principal); Z76.0 Encounter for issue of repeat prescription; Z88.6 Allergy status to analgesic agent; K21.9 Gastro-esophageal reflux disease without esophagitis
CPT/HCPCS: 99282

== ENCOUNTER 2019-06-18 06:56 | Emergency (ER) | payer MEDICAID ==
[~2019-06-18] VITALS: Ht 180.3 cm; Wt 79.4 kg
--- NOTE | 2019-06-18 07:09 | NUR ---
ED Nurse Note: Pt walked into ED for L ear pain 11/12 since 1700 yesterday. Pt states ear has been draining since yesterday waxy substance and possibly had bug in ear. No discharge right now. Ear pain has caused CORDOVA as well 10/12 pain. Pt is alert and orientedx4, ambulatory.
[2019-06-18 07:11] VITALS: BP 124/84
[2019-06-18] MEDS ORDERED: Acetaminophen 500mg (ES) tab ORAL ONE (07:30)
--- NOTE | 2019-06-18 08:03 | Emergency Room Report ---
History of Present Illness General Chief Complaint: Earache Source: Patient Present Illness HPI This patient states that yesterday evening when he noted pain in his left ear. He states he had severe pain in his left ear all night last night. He states that this morning he noted a large waxy material come out of his ear that was [place] sized. He notes that since that time he has had a decrease in pain but continues to have pain in the left ear. He also states he has decreased hearing. He denies recent illness. Denies cough or congestion. Denies fever or chills. He denies headache or neck pain. He denies blurry vision. He denies chest pain or shortness of breath. He has no other complaints. Allergies: Coded Allergies: CODEINE (Verified Allergy, Unknown, 11/08/12) COVID-19 Screening Contact w/high risk pt: No Recent Travel to affected area: No Experienced COVID-19 symptoms?: No Patient History Past Medical History: see triage record, GERD, psych hx - ADHD Social History: Denies: smoking, alcohol use, drug use Reviewed Nursing Documentation: PMH: Agreed; PSxH: Agreed Nursing Documentation-PMH Hx Cardiac Problems: No - ECZEMA Hx Hypertension: No Hx Pacemaker: No Hx Asthma: Yes - CHILDHOOD Hx COPD: No Hx Diabetes: No Hx Cancer: No Hx Gastrointestinal Problems: Yes - GERD Hx Dialysis: No Hx Neurological Problems: Yes - ADHD Hx Cerebrovascular Accident: No Hx Seizures: No Review of Systems All Other Systems: negative except mentioned in HPI Physical Exam Vital Signs Date Time Temp Pulse Resp B/P (MAP) Pulse Ox O2 Delivery O2 Flow Rate FiO2 06/18/19 06:58 98.1 101 18 128/87 (101) 98 Room Air Sp02 EP Interpretation: reviewed, normal General Appearance: no apparent distress, alert, GCS 15, non-toxic Head: normocephalic, atraumatic Eyes: bilateral eye normal inspection, bilateral eye PERRL ENT: hearing grossly normal, no angioedema, normal voice, other - L. external ear canal swollen and erythematous, TM WNL. Neck: normal inspection, full range of motion Respiratory: no respiratory distress, no retraction, no accessory muscle use, speaking full sentences Cardiovascular #2: 2+ carotid (R), 2+ carotid (L), 2+ radial (R), 2+ radial (L) , 2+ dorsalis pedis (R), 2+ dorsalis pedis (L) Musculoskeletal: normal inspection, gait/station normal, non-tender Neurologic: alert, motor strength/tone normal, oriented x3, responsive, speech normal Psychiatric: judgement/insight normal, memory normal, mood/affect normal, no suicidal/homicidal ideation Skin: no rash, normal color Medical Decision Making Diagnostic Impression: Primary Impression: Otitis externa ER Course This patient has findings on exam consistent with otitis externa. There is no identification of a foreign body. The tympanic membrane was within normal limits without evidence of otitis media. The patient overall is well-appearing and nontoxic. Patient is afebrile and there is no physical exam evidence of malignant otitis externa or mastoiditis. Patient is given close return precautions and follow-up instructions. Last Vital Signs Date Time Temp Pulse Resp B/P (MAP) Pulse Ox O2 Delivery O2 Flow Rate FiO2 06/18/19 07:11 98.1 78 20 124/84 97 Room Air Status: improved Disposition: HOME, SELF-CARE Condition: Improved Scripts Ciprofloxacin Hcl/Dexameth (CIPRODEX OTIC SUSPENSION) 7.5 Ml Drops.susp 4 DROP LEFT EAR TWICE A DAY for 10 Days, #7.5 ML Prov: Ericka Hall DO 06/18/19 [facility] Ericka Hall DO Jun 18, 2019 08:03
[2019-06-18] MEDS ORDERED: CIPRODEX OTIC7.5 M1 LEFT EAR (08:05)
--- NOTE | 2019-06-18 08:30 | NUR ---
ED Nurse Note: Arrived to patients room to give discharge paperwork. Pt left without d/c papers or signing d/c papers. notified.
== END 2019-06-18 08:30 | disposition home or self-care (01) ==
LOC: EMR 07:20
DX: H60.92 Unspecified otitis externa, left ear (principal); Z88.6 Allergy status to analgesic agent; K21.9 Gastro-esophageal reflux disease without esophagitis
CPT/HCPCS: 99282

== ENCOUNTER 2020-05-24 11:36 | Emergency (ER) | payer MEDICAID ==
[~2020-05-24] VITALS: Ht 180.3 cm; Wt 81.6 kg
[~2020-05-24 11:36] MED LIST changes: +CIPRODEX OTIC7.5 M1 LEFT EAR
[2020-05-24 12:09] VITALS: BP 142/101
--- NOTE | 2020-05-24 12:10 | NUR ---
pt arrives to ER requesting a prescription for vyvanse. pt is unable to tell me why his primary care physican would prescribe this could not provide refill. pt also states upcoming evaluation from neurologist.
[2020-05-24] MEDS ORDERED: VYVANSE70 MG ORAL (12:17)
--- NOTE | 2020-05-28 07:06 | Emergency Room Report ---
History of Present Illness General Chief Complaint: Medication Refill Source: Patient Present Illness HPI 45-year-old male presents for evaluation. Requesting refill of medication. Takes Vyvanse. Ran out of his medication yesterday. PMD is out of town. States he feels very anxious. Denies SI or HI. Denies hearing voices. Denies alcohol or drug use. No other aggravating relieving factors. Denies any other associated symptoms Allergies: Coded Allergies: CODEINE (Verified Allergy, Unknown, 11/08/12) COVID-19 Screening Contact w/high risk pt: No Recent Travel to affected area: No Experienced COVID-19 symptoms?: No COVID-19 Testing performed TOXICS PROGRAM OFFICER: No Patient History Past Medical History: GERD, psych hx Pertinent Family History: none Social History: Denies: smoking, alcohol use, drug use Immunizations: UTD Reviewed Nursing Documentation: PMH: Agreed; PSxH: Agreed Nursing Documentation-PMH Hx Cardiac Problems: No - ECZEMA Hx Hypertension: No Hx Pacemaker: No Hx Asthma: Yes - CHILDHOOD Hx COPD: No Hx Diabetes: No Hx Cancer: No Hx Gastrointestinal Problems: Yes - GERD Hx Dialysis: No Hx Neurological Problems: Yes - ADHD Hx Cerebrovascular Accident: No Hx Seizures: No Review of Systems All Other Systems: negative except mentioned in HPI Physical Exam Vital Signs Date Time Temp Pulse Resp B/P (MAP) Pulse Ox O2 Delivery O2 Flow Rate FiO2 05/24/20 11:59 97.9 81 18 142/101 (115) 96 Room Air Sp02 EP Interpretation: reviewed, normal General Appearance: no apparent distress, alert, GCS 15, non-toxic Head: normocephalic, atraumatic Eyes: bilateral eye normal inspection, bilateral eye PERRL ENT: hearing grossly normal, normal pharynx, no angioedema, normal voice Neck: full range of motion, supple/symm/no masses Respiratory: chest non-tender, lungs clear, normal breath sounds, speaking full sentences Cardiovascular #1: regular rate, rhythm, no edema Cardiovascular #2: 2+ carotid (R), 2+ carotid (L), 2+ radial (R), 2+ radial (L), 2+ dorsalis pedis (R), 2+ dorsalis pedis (L) Gastrointestinal: normal bowel sounds, non tender, soft, non-distended, no guarding, no rebound Rectal: deferred Genitourinary: normal inspection, no CVA tenderness Musculoskeletal: back normal, normal range of motion, gait/station normal, non- tender Neurologic: alert, motor strength/tone normal, oriented x3, sensory intact, responsive, speech normal Psychiatric: judgement/insight normal, memory normal, no suicidal/homicidal ideation, no delusions, anxious Reflexes: 3+ bicep (R), 3+ bicep (L), 3+ tricep (R), 3+ tricep (L), 3+ knee (R ), 3+ knee (L) Lymphatic: no adenopathy Medical Decision Making Diagnostic Impression: Primary Impression: Encounter for medication refill ER Course 45-year-old male presents to ED refill of her medication. History of anxiety- takes Vyvanse hospital course: After initial history and physical, he produces pill bottle which documents Vyvanse being prescribed. Given that, I tell patient I will write him for a one-week prescription of Klonopin. Diagnosis-encounter for medication refill Stable and discharged to home with prescription for Vyvanse. Followup with PMD. Return to ED if symptoms recur or worsen Last Vital Signs Date Time Temp Pulse Resp B/P (MAP) Pulse Ox O2 Delivery O2 Flow Rate FiO2 05/24/20 12:09 97.9 18 142/101 96 Room Air 05/24/20 11:59 81 Status: improved Disposition: HOME, SELF-CARE Condition: Stable Scripts Lisdexamfetamine Dimesylate (VYVANSE) 70 Mg Capsule 70 MG ORAL DAILY, #7 CAP 0 Refills Prov: Vito Bowman MD 05/24/20 Referrals: [facility],REFERRING (PCP) Anastasiya Feliciano [facility]. [facility] Patient Instructions: Medicine Refill at the Emergency Department Vito Bowman MD May 28, 2020 07:06
== END 2020-05-24 12:38 | disposition home or self-care (01) ==
LOC: EMR 12:30
DX: Z76.0 Encounter for issue of repeat prescription (principal); F41.9 Anxiety disorder, unspecified; Z88.6 Allergy status to analgesic agent; K21.9 Gastro-esophageal reflux disease without esophagitis
CPT/HCPCS: 99282

== ENCOUNTER 2020-06-02 08:07 | Emergency (ER) | payer MEDICAID ==
[~2020-06-02] VITALS: Ht 180.3 cm; Wt 81.6 kg
--- NOTE | 2020-06-02 08:29 | NUR ---
ED Nurse Note:pt with c/o as in triage. relates is attempting to find a psychiatrist
--- NOTE | 2020-06-02 08:34 | Emergency Room Report ---
History of Present Illness General Chief Complaint: Medication Refill Source: Patient Present Illness HPI Disclaimer: Please note that this report is being documented using [employer] technology. This can lead to erroneous entry secondary to incorrect interpretation by the dictating instrument. HPI: 45-year-old male history of general anxiety disorder presents for medication refill. He states he typically takes 0.5 mg Ativan as needed for anxiety. Has been feeling anxious lately and no longer has medications. He was previously obtaining these medications from his PMD but they are no longer prescribing it for him. He does not follow up with psychiatry or clinic. Denies SI/HI. No other complaints at this time. Denies alcohol or drug abuse PMH: Generalized anxiety PSH: Reviewed Allergies: Codeine Social Hx: Reviewed Allergies: Coded Allergies: CODEINE (Verified Allergy, Unknown, 11/08/12) COVID-19 Screening Contact w/high risk pt: No Recent Travel to affected area: No Experienced COVID-19 symptoms?: No COVID-19 Testing performed DEVICE ENGINEER: No Nursing Documentation-PMH Past Medical History: No History, Except For Hx Cardiac Problems: No - ECZEMA Hx Hypertension: No Hx Pacemaker: No Hx Asthma: Yes - CHILDHOOD Hx COPD: No Hx Diabetes: No Hx Cancer: No Hx Gastrointestinal Problems: Yes - GERD Hx Dialysis: No Hx Neurological Problems: Yes - ADHD Hx Cerebrovascular Accident: No Hx Seizures: No Review of Systems All Other Systems: negative except mentioned in HPI Physical Exam Vital Signs Date Time Temp Pulse Resp B/P (MAP) Pulse Ox O2 Delivery O2 Flow Rate FiO2 06/02/20 08:17 98.6 101 20 150/96 (114) 99 Room Air General: Awake and alert, no acute distress HEENT: NC/AT. EOMI. Resp: Normal work of breathing Skin: Intact. No abrasions, laceration or rash over the exposed skin MSK: Normal tone and bulk. Moving all extremities. No obvious deformity. Neuro: Awake and alert. Mentating appropriately Medical Decision Making Diagnostic Impression: Primary Impression: Anxiety ER Course 45-year-old male history of generalized anxiety disorder presents requesting prescription for Ativan. Denies SI/HI, otherwise well-appearing. Patient given Ativan in the emergency department but has he has had multiple prescriptions in the past few weeks similar complaints he needs to follow-up regularly with mental health counselor. Will refer him to outpatient services. Stable for outpatient follow-up. Last Vital Signs Date Time Temp Pulse Resp B/P (MAP) Pulse Ox O2 Delivery O2 Flow Rate FiO2 06/02/20 08:17 98.6 101 20 150/96 (114) 99 Room Air Disposition: HOME, SELF-CARE Condition: Stable Referrals: [facility] Psych ER - Peds ER - [facility] Intake Hotline - [facility] - [facility] Additional Instructions: Please follow-up with your primary care doctor in the next 1 to 3 days to discuss this emergency department visit and for reevaluation. If you have any new or worsening symptoms please return to the emergency department for reevaluation. Please note that this report is being documented using [employer] technology. This can lead to erroneous entry secondary to incorrect interpretation by the dictating instrument. King Pandey MD Jun 02, 2020 08:34
[2020-06-02 08:41] VITALS: BP 146/88
--- NOTE | 2020-06-02 08:44 | NUR ---
ED Nurse Note: Pt cleared by health care Provider for discharge. DC instructions/prescription was given and explained to pt and verbalized understanding of teachings. All medical devices such as ID band removed. Pt is AAO x4, ambulatory and left with all personal belongings.
[2020-06-02] MEDS ORDERED: LORazepam 1mg tab ORAL ONE (08:45)
== END 2020-06-02 08:45 | disposition home or self-care (01) ==
LOC: EMR 08:34
DX: F41.9 Anxiety disorder, unspecified (principal); Z76.0 Encounter for issue of repeat prescription; Z88.6 Allergy status to analgesic agent
CPT/HCPCS: 99282